=== PATIENT | female | born 1955 | race Caucasian/White ===

== ENCOUNTER → 2017-07-25 | Outpatient (CLI) | payer OTHER | LOC: COL.RAD 07-18 14:00 | DX: M17.0 Bilateral primary osteoarthritis of knee (principal); M23.221 Derangement of posterior horn of medial meniscus due to old tear or injury, right knee; M85.48 Solitary bone cyst, other site; M23.222 Derangement of posterior horn of medial meniscus due to old tear or injury, left knee; M70.52 Other bursitis of knee, left knee ==